=== PATIENT | male | born 1950 | race Caucasian/White ===

== ENCOUNTER 2017-10-14 14:48 | Emergency (ER) | payer OTHER ==
[~2017-10-14] VITALS: Ht 185.4 cm; Wt 109.5 kg
[~2017-10-14 14:48] MED LIST: ACT/15 PO; AMLO5TAB2 PO; ASPI-435 PO; B-COTAB18 PO; CARV6.252 PO; CHOL1000 PO; CITA20TA4 PO; COEN1CAP17 PO; EZET10TA47 PO; GLC/500 PO; HYDR12.55 PO; INSDGI SC; LISI20TA3 PO; OMEP20CA9 PO; TEST1SOL TOP
[2017-10-14 14:51] VITALS: TEMP 36.7; Ht 185.4 cm; Wt 109.5 kg
[2017-10-14] MEDS ORDERED: CEFTRIAXONE SOD INJ 1 GM ADDVIAL IV STA (15:07)
[2017-10-14 15:26] LABS: BASO % 0.3 %; BASO ABS # 0.03 K/uL (0-0.2); EOS % 2.1 %; EOS ABS # 0.23 K/uL (0-0.5); HEMATOCRIT 47.1 % (42-52); HEMOGLOBIN 16.9 g/dL (14.0-18.0); IG# 0.04 K/uL (0.00-0.02); LYMPH % 19.6 %; LYMPH ABS # 2.19 K/uL (1.2-3.4); MEAN CELL VOLUME 86.9 fL (80-100); MEAN CORPUSCULAR HEMOGLOBIN 31.2 pg (25-34); MEAN CORPUSCULAR HGB CONC 35.9 g/dl (32-36); MEAN PLATELET VOLUME 10.2 fL (7.4-10.4); MONO % 13.7 %; MONO ABS # 1.53 K/uL (0.11-0.59); NEUT % 63.9 %; NEUT ABS # 7.17 K/uL (1.4-6.5); PLATELET COUNT 190 K/uL (130-400); RED CELL DISTRIBUTION WIDTH CV 12.5 % (11.5-14.5); RED CELL DISTRIBUTION WIDTH SD 39.3 fL (36.4-46.3); WHITE BLOOD COUNT 11.19 K/uL (4.8-10.8)
[2017-10-14] MEDS ORDERED: INSDGI SC (15:29)
[2017-10-14] MEDS ORDERED: METFTAB PO (15:29)
[2017-10-14] MEDS ORDERED: TEST30SO TOP (15:29)
[2017-10-14 15:45] LABS: CALCIUM 8.9 mg/dl (8.5-10.1); CREATININE 0.9 mg/dl (0.60-1.40); POTASSIUM 3.7 mmol/L (3.5-5.1)
[2017-10-14] MEDS ORDERED: CEPH-571 PO (16:06)
[2017-10-14] MEDS ORDERED: SULF800T23 PO (16:06)
[2017-10-14 16:25] VITALS: BP 154/89; PULSE 84; O2SAT 94
[2017-10-14] MEDS ORDERED: NURSING VERBAL MED ORDER ONE (16:30)
--- NOTE | 2017-10-14 17:16 | EMERGENCY ROOM VISIT NOTE ---
History Report prepared by Cam: Christian Parikh Under the Supervision of: Mela DasilvaO. First contact with patient: 14:56 Chief Complaint: INFECTION Stated Complaint: INFECTION History of Present Illness The patient is a 67 year old male who presents to the Emergency Room with complaints of worsening redness and warmth to the left lower extremity/foot that began last , 5 days ago. The patient states that he was at work when a "jump-a-michelle" fell onto this leg. He notes that the redness and warmth started on Friday, 2 days ago. He did receive an antibiotic and cream to put on the wound. There was never any drainage from the area. He denies headache, change in vision, fevers, chest pain, shortness of breath, nausea, vomiting, diarrhea, pain with urination, and melena. The patient is a diabetic. Source of History: patient Onset: 5 days ago Position: leg (left), ankle (left) Quality: other (redness/warmth) Timing: worsening Associated Symptoms: No fevers, No SOB Review of Systems See HPI for pertinent positives & negatives. A total of 10 systems reviewed and were otherwise negative. Past Medical & Surgical Medical Problems: (1) Diabetes (2) GERD (gastroesophageal reflux disease) (3) HTN (hypertension) Social History Smoking Status: Never Smoker Alcohol Use: occasionally Marital Status: Occupation Status: employed Current/Historical Medications Scheduled Amlodipine Besylate (Norvasc), 5 MG PO DAILY Aspirin (Aspirin 81), 81 MG PO DAILY B-Complex Vitamins (Vitamin B Complex), 1 TAB PO DAILY Carvedilol (Coreg), 6.25 MG PO BID Cephalexin (Keflex), 1 CAP PO TID Citalopram Hydrobromide (Citalopram Hydrobromide), 30 MG PO DAILY Coenzyme Q10 (Ubidecarenone) (Co Q 10), 1 CAP PO DAILY Ezetimibe (Zetia), 10 MG PO DAILY Hydrochlorothiazide (Hydrochlorothiazide), 12.5 MG PO DAILY Insulin Glargine (Lantus), 28 UNIT SC QAM Lisinopril (Prinivil), 20 MG PO DAILY Metformin Ext Rel (Glucophage Ext Rel), 500 MG PO QPM Sulfamethoxazole-Trimethoprim (Bactrim Ds 800MG/160MG), 1 TAB PO BID Testosterone (Testosterone Topical Solu), 1 DOSE TOP DAILY Allergies Coded Allergies: No Known Allergies (Unverified , 10/14/17) Physical Exam Vital Signs Date Time Temp Pulse Resp B/P (MAP) Pulse Ox O2 Delivery O2 Flow Rate FiO2 10/14/17 16:25 84 18 154/89 94 10/14/17 14:51 36.7 93 20 163/91 95 Room Air Physical Exam GENERAL: Sitting up in bed, alert, well appearing, well nourished, no distress, non-toxic EYE EXAM: normal conjunctiva. OROPHARYNX: no exudate, no erythema, lips, buccal mucosa, and tongue normal and mucous membranes are moist NECK: supple, no nuchal rigidity, no adenopathy, non-tender LUNGS: Clear to auscultation. Normal chest wall mechanics HEART: no murmurs, S1 normal and S2 normal ABDOMEN: abdomen soft, non-tender, normo-active bowel sounds, no masses, no rebound or guarding. BACK: Back is symmetrical on inspection and there is no deformity, no midline tenderness, no CVA tenderness. SKIN: no rashes and no bruising UPPER EXTREMITIES: upper extremities are grossly normal. LOWER EXTREMITIES: LLE with mild pitting edema. There is a 12x12 cm area of erythema which is warm and without drainage. There is no induration. Bedside US shows cobble stoning without fluid collection. NEURO EXAM: Normal sensorium, cranial nerves II-XII grossly intact, normal speech, no gross weakness of arms, no gross weakness of legs. Medical Decision & Procedures Laboratory Results 10/14/17 15:17 Red Blood Count 5.42, Mean Corpuscular Volume 86.9, Mean Corpuscular Hemoglobin 31.2, Mean Corpuscular Hemoglobin Concent 35.9, Mean Platelet Volume 10.2, Neutrophils (%) (Auto) 63.9, Lymphocytes (%) (Auto) 19.6, Monocytes (%) (Auto) 13.7, Eosinophils (%) (Auto) 2.1, Basophils (%) (Auto) 0.3, Neutrophils # (Auto ) 7.17, Lymphocytes # (Auto) 2.19, Monocytes # (Auto) 1.53, Eosinophils # (Auto ) 0.23, Basophils # (Auto) 0.03 10/14/17 15:17 Test 10/14/17 15:17 White Blood Count 11.19 K/uL (4.8-10.8) Red Blood Count 5.42 M/uL (4.7-6.1) Hemoglobin 16.9 g/dL (14.0-18.0) Hematocrit 47.1 % (42-52) Mean Corpuscular Volume 86.9 fL (80-100) Mean Corpuscular Hemoglobin 31.2 pg (25-34) Mean Corpuscular Hemoglobin Concent 35.9 g/dl (32-36) Platelet Count 190 K/uL (130-400) Mean Platelet Volume 10.2 fL (7.4-10.4) Neutrophils (%) (Auto) 63.9 % Lymphocytes (%) (Auto) 19.6 % Monocytes (%) (Auto) 13.7 % Eosinophils (%) (Auto) 2.1 % Basophils (%) (Auto) 0.3 % Neutrophils # (Auto) 7.17 K/uL (1.4-6.5) Lymphocytes # (Auto) 2.19 K/uL (1.2-3.4) Monocytes # (Auto) 1.53 K/uL (0.11-0.59) Eosinophils # (Auto) 0.23 K/uL (0-0.5) Basophils # (Auto) 0.03 K/uL (0-0.2) RDW Standard Deviation 39.3 fL (36.4-46.3) RDW Coefficient of Variation 12.5 % (11.5-14.5) Immature Granulocyte % (Auto) 0.4 % Immature Granulocyte # (Auto) 0.04 K/uL (0.00-0.02) Anion Gap 8.0 mmol/L (3-11) Est Creatinine Clear Calc Drug Dose 103.3 ml/min Estimated GFR () 102.1 Estimated GFR (Non- 88.1 BUN/Creatinine Ratio 18.3 (10-20) Calcium Level 8.9 mg/dl (8.5-10.1) Laboratory results per my review. Medications Administered Medications (Trade) Dose Ordered Sig/Angel Route Start Time Stop Time Status Last Admin Dose Admin Ceftriaxone Sodium (Rocephin Inj) 1 gm NOW STAT IV 10/14/17 15:07 10/14/17 15:08 DC 8/14/18 15:37 1 GM Procedure BEDSIDE US: Bedside US shows cobble stoning without fluid collection. ED Course ED COURSE: Vital signs were reviewed and showed situationally hypertensive. The patients medical record was reviewed The above diagnostic studies were performed and reviewed. ED treatments and interventions as stated above. 1458: The patient was evaluated in room B2. A complete history and physical examination was performed. 1507: Ordered Rocephin 1 gm IV. 1611: Upon reevaluation, the patient is resting in bed. I discussed my findings with the patient and he understands and agrees with the treatment plan. Based on the patients age, coexisting illnesses, exam and lab findings the decision to treat as an outpatient was made. The patient remained stable while under my care. The patient appeared well at the time of discharge. Medical Decision Differential diagnosis includes etiologies such as cellulitis, abscess, MRSA infection, DVT, necrotizing fasciitis, dermatitis, drug eruption, as well as others were entertained. Patient is a 67-year-old diabetic that presents the ER for a cellulitis on his left joyce. Patient notes that he started to notice it this Friday. He was placed on antibiotics. He thinks it may have slightly worsened on doxycycline. Vitals were stable. Afebrile. CBC and BMP were fairly unremarkable. Patient was updated bedside. Bedside ultrasound showed no abscess. Did elect to stop his doxycycline at this point. I outlined the wound. Stressed the importance of follow-up in 24-48 hours. Switched him to Keflex and Bactrim for better strep coverage. Patient was updated at bedside. Gave him strict instructions for reasons to return immediately to the ER. Discharge follow-up with PCP as an outpatient. Discussed with Pt concerning signs and symptoms to watch out for. Pt was instructed to follow up with their PCP and discussed with the patient their option to return to the ED at anytime for persistent or worsening symptoms. The appropriate anticipatory guidance and out-patient management, including indications for return to the emergency department, were explained at length to the patient and understood. Blood Pressure Screening Patient's blood pressure: Elevated blood pressure Impression Primary Impression: Cellulitis Scribe Attestation The scribe's documentation has been prepared under my direction and personally reviewed by me in its entirety. I confirm that the note above accurately reflects all work, treatment, procedures, and medical decision making performed by me. Departure Information Dispostion Home / Self-Care Prescriptions Cephalexin (KEFLEX) 500 Mg Cap 1 CAP PO TID for 10 Days, #30 CAP Prov: Erik Nicolas EllynZechariah, DO 10/14/17 Sulfamethoxazole-Trimethoprim (Bactrim Ds 800MG/160MG) 1 Tab Tab 1 TAB PO BID, #20 TAB Prov: Erik Nicolas Crow, DO 10/14/17 Referrals No Doctor, Assigned (PCP) Forms HOME CARE DOCUMENTATION FORM, IMPORTANT VISIT INFORMATION, WORK / SCHOOL INSTRUCTIONS Patient Instructions [facility] Additional Instructions Please follow up with your primary care doctor with in the next 24 hours. Any worsening of your symptoms, please return to the ED immediately. This includes any fevers greater than 100.4, worsening pain, chest pain, shortness breath, persistent nausea, vomiting, unable to eat or drink, or any other concerning signs or symptoms from your standpoint. Please stop taking doxycycline. Please start taking Bactrim and Keflex as prescribed. You should not see the infection get any worse over the next 24 hours. It should start improving over the next 48 hours. Problem Qualifiers Primary Impression: Cellulitis Site of cellulitis: unspecified site Qualified Codes: L03.90 - Cellulitis, unspecified
== END 2017-10-14 16:38 | disposition home or self-care (01) ==
LOC: C.EDB 14:50
DX: S89.92XA Unspecified injury of left lower leg, initial encounter (principal); L03.116 Cellulitis of left lower limb; W22.8XXA Striking against or struck by other objects, initial encounter; Y99.0 Civilian activity done for income or pay; E11.9 Type 2 diabetes mellitus without complications; I10 Essential (primary) hypertension; Z79.899 Other long term (current) drug therapy; Z79.4 Long term (current) use of insulin